=== PATIENT | male | born 1970 | race Caucasian/White ===

== ENCOUNTER 2018-05-30 12:22 | Emergency (ER) | payer OTHER ==
[~2018-05-30] VITALS: Ht 177.8 cm; Wt 91.4 kg
[2018-05-30] MEDS ORDERED: ONDANSETRON 2MG/ML, 2ML ONE (12:49)
[2018-05-30] MEDS ORDERED: HYDROmorphone 2 MG/ML, 1ML ONE (12:50)
[2018-05-30] MEDS ORDERED: PLEASE ENTER ALLERGIES MC SCH (13:00)
[2018-05-30] MEDS ORDERED: ONDANSETRON 2MG/ML, 2ML IVPush ONE (13:00)
[2018-05-30] MEDS ORDERED: SODIUM CHLORIDE FLUSH 10ML SYR IVF ONE (13:00)
[2018-05-30] MEDS ORDERED: HYDROmorphone 2 MG/ML, 1ML IVPush PRN (13:00)
[2018-05-30 13:07] LABS: CULTURE INDICATED? NO; MICROSCOPIC NOT IND
[2018-05-30 14:19] VITALS: BP 121/68
== END 2018-05-30 14:24 | disposition home or self-care (01) ==
LOC: EDSEX 12:22 → ED 14:18
DX: N23 Unspecified renal colic (principal)
CPT/HCPCS: 74176; 81003; 96374; 96375; 99285; J1170; J2405

== ENCOUNTER → 2018-06-05 | Outpatient (CLI) | payer OTHER ==
[~2018-06-05] MED LIST: FUROSEMIDE 20 MG/2 ML ONE
== END | disposition home or self-care (01) ==
LOC: PETCFH 08:24
PROVIDERS: ATTEND Urology
DX: M54.89 Other dorsalgia (principal); R10.9 Unspecified abdominal pain
CPT/HCPCS: 78708; A9562; J1940